=== PATIENT | male | born 1980 | race African-American/Black ===

== ENCOUNTER 2019-06-18 10:15 | Emergency (ER) | payer OTHER ==
--- NOTE | 2019-06-18 10:26 | ER Document Report ---
ED Medical Screen (RME) - General Chief Complaint: Shortness Of Breath Stated Complaint: SHORTNESS OF BREATH Time Seen by Provider: 06/18/19 10:21 Mode of Arrival: Wheelchair Information source: Patient Notes: 39-year-old male presented to ED for complaint complaint of shortness of breath. He states he cannot walk very far without becoming very short of breath and needing to sit down. He states he does have a history of kidney disease but no heart disease. He states he is not sure what his stage of kidney disease is. He denies any nausea vomiting diarrhea or fever in the last several days. He is from [place] he is working down here temporarily. He does not have a local primary doctor. He states sometimes he does have chest pains also. States he does not smoke drink or do any drugs. I have greeted and performed a rapid initial assessment of this patient. A comprehensive ED assessment and evaluation of the patient, analysis of test results and completion of medical decision making process will be conducted by an additional ED providers.
[2019-06-18] MEDS ORDERED: ASPIRIN 81 MG TABLET, CHEWABLE PO ONE (10:27)
[2019-06-18 11:07] LABS: ABSOLUTE BASOPHILS # (AUTO) 0.1 10^3/uL (0.0-0.2); ABSOLUTE EOSINOPHILS # (AUTO) 0.7 10^3/uL (0.0-0.6); ABSOLUTE LYMPHOCYTES (AUTO) 1.1 10^3/uL (0.5-4.7); ABSOLUTE MONOCYTES (AUTO) 1.4 10^3/uL (0.1-1.4); ABSOLUTE NEUT (AUTO) 8.1 10^3/uL (1.7-8.2); BASOPHILS % (AUTO) 0.8 % (0-2); EOSINOPHILS % (AUTO) 5.9 % (0-6); HEMATOCRIT 20.9 % (37.9-51.0); LYMPHOCYTES % (AUTO) 9.8 % (13-45); MEAN CORPUSCULAR HEMOGLOBIN 30.7 pg (27.0-33.4); MEAN CORPUSCULAR HGB CONC 33.9 g/dL (32.0-36.0); MEAN CORPUSCULAR VOLUME 91 fl (80-97); MONOCYTES % (AUTO) 12.3 % (3-13); PLATELET COUNT 387 10^3/uL (150-450); RED CELL DISTRIBUTION WIDTH 13.6 % (11.5-14.0); SEGMENTED NEUTROPHILS % (AUTO) 71.2 % (42-78); TOTAL CELLS COUNTED % (AUTO) 100 %; WHITE BLOOD COUNT 11.4 10^3/uL (4.0-10.5)
[2019-06-18 11:11] LABS: HEMOGLOBIN 7.1 g/dL (13.5-17.0)
[2019-06-18 11:16] LABS: ALBUMIN 3.7 g/dL (3.5-5.0); ALKALINE PHOSPHATASE 74 U/L (38-126); ASPARTATE AMINO TRANSFERASE 25 U/L (17-59); BILIRUBIN,DIRECT 0.3 mg/dL (0.0-0.4); BILIRUBIN,TOTAL 0.3 mg/dL (0.2-1.3); GLUCOSE 105 mg/dL (75-110); POTASSIUM 5.2 mmol/L (3.6-5.0); TOTAL PROTEIN 6.9 g/dL (6.3-8.2)
[2019-06-18 11:27] LABS: CARBON DIOXIDE 11 mmol/L (22-30); CHLORIDE 107 mmol/L (98-107)
[2019-06-18 11:28] LABS: BLOOD UREA NITROGEN 136 mg/dL (7-20)
[2019-06-18 11:29] LABS: ANION GAP 22 (5-19)
[2019-06-18 11:35] LABS: TROPONIN I 0.04 ng/mL
[2019-06-18] MEDS ORDERED: SODIUM POLYSTYRENE SULFONATE 15 GM/60 ML PO ONE (11:39)
[2019-06-18 11:48] LABS: APPEARANCE,URINE SLIGHTLY-CLOUDY; BILIRUBIN,URINE NEGATIVE (NEGATIVE); COLOR,URINE STRAW; GLUCOSE, URINE 50 mg/dL (NEGATIVE); KETONES,URINE NEGATIVE (NEGATIVE); PROTEIN,URINE >=500 mg/dL (NEGATIVE); URINE SPECIFIC GRAVITY 1.011; UROBILINOGEN,URINE NEGATIVE mg/dL (<2.0)
--- NOTE | 2019-06-18 12:13 | ER Document Report ---
ED General - General Chief Complaint: Shortness Of Breath Stated Complaint: SHORTNESS OF BREATH Time Seen by Provider: 06/18/19 10:21 Mode of Arrival: Wheelchair Information source: Patient TRAVEL OUTSIDE OF THE [place] IN LAST 30 DAYS: No - HPI Notes: Patient presents with shortness of breath. He states this is been going on for several weeks but is gradually increasing. He states it is worse with ambulation and better with rest. He states he does not have any significant pain. He mainly has weakness and shortness of breath. He states he does have a history of diabetes and some kidney disease. He is not on dialysis. He states he does not currently have a primary doctor. He has had some chest discomfort as a pressure-like sensation. The shortness of breath is constant. It is moderate to severe. There is no sniffing radiation of the symptoms. He had no cough cold or congestion. No fevers or chills. He denies any history of COPD or CHF. - Related Data Allergies/Adverse Reactions: No Known Allergies Allergy (Verified 06/18/19 10:30) Past Medical History - General Information source: Patient - Social History Smoking Status: Never Smoker Frequency of alcohol use: None Drug Abuse: None Family History: Reviewed & Not Pertinent Patient has suicidal ideation: No Patient has homicidal ideation: No - Past Medical History Cardiac Medical History: Reports: Hx Hypertension Review of Systems - Review of Systems Constitutional: Malaise, Weakness Cardiovascular: Chest pain. denies: Palpitations Respiratory: Short of breath. denies: Wheezing Gastrointestinal: denies: Diarrhea, Vomiting -: Yes All other systems reviewed and negative Physical Exam - Vital signs Vitals: Temp Pulse Resp BP Pulse Ox 97.8 F 87 22 H 181/82 H 100 06/18/19 10:21 06/18/19 10:21 06/18/19 10:21 06/18/19 10:21 06/18/19 10:21 Interpretation: Hypertensive - General General appearance: Appears well, Alert In distress: None - HEENT Head: Normocephalic, Atraumatic Eyes: Normal Pupils: PERRL - Respiratory Respiratory status: No respiratory distress Chest status: Nontender Breath sounds: Decreased air movement - Bilateral Chest palpation: Normal - Cardiovascular Rhythm: Regular Heart sounds: Normal auscultation Murmur: No - Abdominal Inspection: Normal Distension: No distension Bowel sounds: Normal Tenderness: Nontender Organomegaly: No organomegaly - Back Back: Normal, Nontender - Extremities General upper extremity: Normal inspection, Nontender, Normal color, Normal ROM, Normal temperature General lower extremity: Edema - 2+ pitting bilaterally, Normal color, Normal ROM, Normal temperature, Normal weight bearing. No: Shawn's sign - Neurological Neuro grossly intact: Yes Cognition: Normal Orientation: AAOx4 Flasher Coma Scale Eye Opening: Spontaneous Ed Coma Scale Verbal: Oriented Ed Coma Scale Motor: Obeys Commands Ed Coma Scale Total: 15 Speech: Normal Motor strength normal: LUE, RUE, LLE, RLE Sensory: Normal - Psychological Associated symptoms: Normal affect, Normal mood - Skin Skin Temperature: Warm Skin Moisture: Dry Skin Color: Normal Course - Re-evaluation Re-evalutation: 06/18/19 12:11 Patient presents with increasing shortness of breath of the last several weeks. He is in obvious renal failure with a creatinine of 21. Potassium is just slightly elevated at 5.2. He will be treated with Kayexalate. For the renal failure I will consult [facility] for transfer. There are currently no dialysis beds available here. Patient vital signs are otherwise stable. He also has anemia. I called and discussed the case with the band aid machine operator Dr. Amador. He stated that he felt it was best the patient did not receive blood or fluid at this time until patient was dialyzed. He felt it was better if patient received a transfusion during dialysis. 06/18/19 12:50 - Vital Signs Vital signs: Temp Pulse Resp BP Pulse Ox 97.8 F 87 22 H 181/82 H 100 06/18/19 10:21 06/18/19 10:21 06/18/19 10:21 06/18/19 10:21 06/18/19 10:21 - Laboratory Result Diagrams: 06/18/19 10:37 06/18/19 14:31 Laboratory results interpreted by me: 06/18/19 06/18/19 06/18/19 10:37 10:37 10:37 WBC 11.4 H RBC 2.30 L Hgb 7.1 L Hct 20.9 L Lymph % (Auto) 9.8 L Absolute Eos (auto) 0.7 H Potassium 5.2 H Chloride Carbon Dioxide 11 L Anion Gap 22 H BUN 136 H Creatinine 21.55 H Est GFR ( Amer) 3 L Est GFR (MDRD) Non-Af 2 L Glucose NT-Pro-B Natriuret Pep 2660 H Lipase 331.4 H Urine Protein Urine Glucose (UA) Urine Blood 06/18/19 06/18/19 11:38 14:31 WBC RBC Hgb Hct Lymph % (Auto) Absolute Eos (auto) Potassium 5.1 H Chloride 110 H Carbon Dioxide 10 L* Anion Gap BUN 140 H Creatinine 22.07 H Est GFR ( Amer) 3 L Est GFR (MDRD) Non-Af 2 L Glucose 66 L NT-Pro-B Natriuret Pep Lipase Urine Protein >=500 H Urine Glucose (UA) 50 H Urine Blood SMALL H - Diagnostic Test Radiology reviewed: Image reviewed, Reports reviewed - EKG Interpretation by Me EKG shows normal: Sinus rhythm Rate: Normal - 83 Rhythm: NSR [place]/QRS: No: Right axis deviation, Left axis deviation Critical Care Note - Critical Care Note Total time excluding time spent on procedures (mins): 50 Comments: Approximately 50 minutes of critical care time were spent on this patient. This included multiple reassessments. And included multiple discussions with consultants. It included reviewing labs and imaging. Discharge - Discharge Clinical Impression: Hyperkalemia Acute renal failure Qualifiers: Acute renal failure type: unspecified Qualified Code(s): N17.9 - Acute kidney failure, unspecified Anemia Qualifiers: Anemia type: due to chronic kidney disease Chronic kidney disease stage: stage 5, not on chronic dialysis Qualified Code(s): N18.5 - Chronic kidney disease, stage 5; D63.1 - Anemia in chronic kidney disease Condition: Serious [facility]
--- NOTE | 2019-06-18 12:42 | RADIOLOGY REPORT (SQ) ---
EXAM DESCRIPTION: CHEST 2 VIEWS COMPLETED DATE/TIME: 06/18/2019 12:32 pm REASON FOR STUDY: short of breath pedal edema COMPARISON: None. EXAM PARAMETERS: NUMBER OF VIEWS: two views TECHNIQUE: Digital Frontal and Lateral radiographic views of the chest acquired. RADIATION DOSE: NA LIMITATIONS: none FINDINGS: LUNGS AND PLEURA: No opacities, masses or pneumothorax. No pleural effusion. MEDIASTINUM AND HILAR STRUCTURES: No masses or contour abnormalities. HEART AND VASCULAR STRUCTURES: Cardiomegaly. No evidence for failure. BONES: No acute findings. HARDWARE: None in the chest. OTHER: No other significant finding. IMPRESSION: 1. NO ACUTE pulmonary findings. 2. Cardiomegaly. No evidence for failure. Correlation suggested. TECHNICAL DOCUMENTATION: JOB ID: [id number] [employer]- All Rights Reserved Reading location - IP/workstation name: [email or web address]
--- NOTE | 2019-06-18 14:22 | PDOC PROGRESS REPORT ---
Subjective Progress Note for:: 06/18/19 Subjective:: Progressive dyspnea on exertion. Reason For Visit: SHORTNESS OF BREATH Physical Exam Vital Signs: Temp Pulse Resp BP Pulse Ox 97.8 F 87 22 H 181/82 H 100 06/18/19 10:21 06/18/19 10:21 06/18/19 10:21 06/18/19 10:21 06/18/19 10:21 Intake & Output 06/17/19 06/18/19 06/19/19 06:59 06:59 06:59 Weight 193.5 kg General appearance: PRESENT: no acute distress, obese Head exam: PRESENT: atraumatic, normocephalic Eye exam: PRESENT: conjunctiva pink, EOMI, PERRLA. ABSENT: scleral icterus Ear exam: PRESENT: normal external ear exam Mouth exam: PRESENT: moist, tongue midline Respiratory exam: PRESENT: crackles, unlabored Additional comments: At bases Cardiovascular exam: PRESENT: RRR. ABSENT: diastolic murmur, rubs, systolic murmur Vascular exam: PRESENT: normal capillary refill GI/Abdominal exam: PRESENT: normal bowel sounds, soft. ABSENT: distended, guarding, mass, organolmegaly, rebound, tenderness Rectal exam: PRESENT: deferred Extremities exam: PRESENT: full ROM Musculoskeletal exam: PRESENT: ambulatory, full ROM, normal inspection Neurological exam: PRESENT: alert, awake, oriented to person, oriented to place, oriented to time, oriented to situation, CN II-XII grossly intact. ABSENT: motor sensory deficit Results Laboratory Results: 06/18/19 10:37 06/18/19 10:37 06/18/19 06/18/19 06/18/19 10:37 10:37 11:38 WBC 11.4 H RBC 2.30 L Hgb 7.1 L Hct 20.9 L MCV 91 MCH 30.7 MCHC 33.9 RDW 13.6 Plt Count 387 Seg Neutrophils % 71.2 Sodium 140.2 Potassium 5.2 H Chloride 107 Carbon Dioxide 11 L Anion Gap 22 H BUN 136 H Creatinine 21.55 H Est GFR ( Amer) 3 L Glucose 105 Calcium 9.0 Total Bilirubin 0.3 AST 25 Alkaline Phosphatase 74 Total Protein 6.9 Albumin 3.7 Lipase 331.4 H Urine Color STRAW Urine Appearance SLIGHTLY-CLOUDY Urine pH 5.0 Ur Specific [place] 1.011 Urine Protein >=500 H Urine Glucose (UA) 50 H Urine Ketones NEGATIVE Urine Blood SMALL H Urine RBC (Auto) 0 06/18/19 10:37 Troponin I 0.040 NT-Pro-B Natriuret Pep 2660 H Impressions: Chest X-Ray 06/18/19 10:26 IMPRESSION: 1. NO ACUTE pulmonary findings. 2. Cardiomegaly. No evidence for failure. Correlation suggested. Assessment & Plan - Diagnosis (1) Renal failure (ARF), acute on chronic Qualifiers: Acute renal failure type: with other specified pathological lesion Chronic kidney disease stage: stage 5, not on chronic dialysis Qualified Code(s): N17.8 - Other acute kidney failure; N18.5 - Chronic kidney disease, stage 5 Is this a current diagnosis for this admission?: Yes Plan: The patient has worsening baseline kidney function now in need of emergant HD. He is somewhat hyperkalemic. shows evidence of volume overload and acidosis. He will not be dialysed here till Mon. Should the patient need more than kayexalate, bicarb and fluid removed until then we will need to transfer emergently. I would advise transfering and dialysing today. (2) Diabetes Qualifiers: Diabetes mellitus type: type 1 Diabetes mellitus complication status: with kidney complications Chronic kidney disease stage: stage 5, not on chronic dialysis Is this a current diagnosis for this admission?: Yes Plan: Likely the main cause of renal failure. (3) Hyperkalemia, diminished renal excretion Is this a current diagnosis for this admission?: Yes Plan: Kayexalate given but likely wont wrok for a few hours (4) Metabolic acidosis Is this a current diagnosis for this admission?: Yes Plan: Bicarb 11. Temporize with bicarb if needed. - Time Time Spent with patient: 35 or more minutes Total Critical Time (Minutes): 35 Medications reviewed and adjusted accordingly: Yes Anticipated discharge: [facility]: Other - Today - Inpatient Certification Based on my medical assessment, after consideration of the patient's comorbidities, presenting symptoms, or acuity I expect that the services needed warrant INPATIENT care.: Yes I certify that my determination is in accordance with my understanding of Medicare's requirements for reasonable and necessary INPATIENT services [42 CFR 412.3e].: Yes Medical Necessity: Failure to Improve With Outpatient Therapy, Significant Comorbidiites Make Outpatient Treatment Too Risky, Need Close Monitoring Due to Risk of Patient Decompensation, Need For Continuous Telemetry Monitoring, Other - Hemodyalisis.
[2019-06-18 15:18] LABS: ALBUMIN 3.9 g/dL (3.5-5.0); ALKALINE PHOSPHATASE 71 U/L (38-126); ASPARTATE AMINO TRANSFERASE 23 U/L (17-59); BILIRUBIN,DIRECT 0.3 mg/dL (0.0-0.4); BILIRUBIN,TOTAL 0.3 mg/dL (0.2-1.3); TOTAL PROTEIN 7.2 g/dL (6.3-8.2)
[2019-06-18 15:24] LABS: CHLORIDE 110 mmol/L (98-107)
[2019-06-18 15:43] LABS: BLOOD UREA NITROGEN 140 mg/dL (7-20); GLUCOSE 66 mg/dL (75-110)
[2019-06-18 16:10] LABS: CALCIUM 9.4 mg/dL (8.4-10.2)
[2019-06-18 17:17] LABS: POTASSIUM 5.1 mmol/L (3.6-5.0)
[2019-06-18 17:18] LABS: ANION GAP 24 (5-19)
[2019-06-18 17:40] VITALS: BP 174/107
[2019-06-18 23:10] LABS: CARBON DIOXIDE 10 mmol/L (22-30)
--- NOTE | 2019-06-20 00:02 | EKG REPORT ---
SEVERITY:- ABNORMAL ECG - SINUS RHYTHM ABNORMAL T, CONSIDER ISCHEMIA, LATERAL LEADS : Confirmed by: Yasmin Jerez 20-Jun-2019 00:02:23
== END 2019-06-18 17:40 | disposition short-term general hospital (02) ==
LOC: ER 10:15
DX: N17.9 Acute kidney failure, unspecified (principal); I12.0 Hypertensive chronic kidney disease with stage 5 chronic kidney disease or end stage renal disease; N18.5 Chronic kidney disease, stage 5; D63.1 Anemia in chronic kidney disease; E87.5 Hyperkalemia; E11.22 Type 2 diabetes mellitus with diabetic chronic kidney disease; R06.02 Shortness of breath; R53.1 Weakness; R07.9 Chest pain, unspecified
CPT/HCPCS: 36415; 71046; 80053; 81001; 83690; 83880; 84484; 85025; 87070; 93005; 93010; 99291